=== PATIENT | female | born 1940 | race African-American/Black ===

== ENCOUNTER 2018-02-27 07:24 | Emergency (ER) | payer MEDICARE ==
[2018-02-27] MEDS ORDERED: HYDROcodone/Acetaminophen 10/325 mg Tablet ONE (08:30)
--- NOTE | 2018-02-27 09:07 | RAD ---
TWO VIEWS RIGHT HIP: INDICATION: Right hip pain. COMPARISON: None. 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 No acute fracture or subluxation is evident. 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 POS: [facility]
--- NOTE | 2018-02-27 09:11 | RAD ---
RIGHT KNEE 4 VIEWS: HISTORY: Injury, right knee pain. FINDINGS/IMPRESSION: No acute fracture or dislocation is identified. A joint effusion is present. POS: [facility]
== END 2018-02-27 08:40 | disposition home or self-care (01) ==
LOC: MADERS 07:24
DX: M25.461 Effusion, right knee (principal); M10.9 Gout, unspecified; E78.5 Hyperlipidemia, unspecified; I10 Essential (primary) hypertension; Z79.899 Other long term (current) drug therapy; W18.30XA Fall on same level, unspecified, initial encounter

== ENCOUNTER 2018-03-16 13:58 | Emergency (ER) | payer MEDICARE ==
[~2018-03-16 13:58] MED LIST: Sodium Chloride 0.45% 1,000 ML BAG ONE
[2018-03-16 15:00] LABS: Prothrombin Time 12.8 SEC (12.0-14.7)
[2018-03-16 15:06] LABS: #Basophils 0.1 thou/uL (0.0-0.2); #Eosinphils 0.2 thou/uL (0.0-0.7); #Lymphocytes 2.1 thou/uL (1.20-3.40); #Monocytes 0.5 thou/uL (0.11-0.59); %Basophils 0.9 % (0.0-1.0); %Eosinophils 2.1 % (0.0-10.0); %Lymphocytes 27.2 % (21.0-51.0); %Monocytes 5.9 % (0.0-10.0); Hemoglobin 11.8 g/dL (12.0-16.0); Mean Corpuscular HGB CONC 31.6 g/dL (32.0-36.0); Mean Corpuscular Volume 91.9 fL (78.0-98.0); Mean Platelet Volume 7.6 fL (7.4-10.4); Platelet Count 326 thou/uL (130-400); RBC Distribution Width 14.1 % (11.5-14.5); Red Blood Cell (RBC) Count 4.06 mill/uL (4.20-5.40); White Blood Cell (WBC) Count 7.8 thou/uL (4.8-10.8)
[2018-03-16 15:10] LABS: ALT (SGPT) 10 U/L (8-55); AST (SGOT) 13 U/L (5-34); Alkaline Phosphatase 93 U/L (40-150); Anion Gap 13 mmol/L (10-20); BUN (Urea Nitrogen) 18 mg/dL (9.8-20.1); Bilirubin, Total 0.6 mg/dL (0.2-1.2); Calc. Creatinine Clearance 0 mL/min (70-130); Calcium 9.5 mg/dL (7.8-10.44); Carbon Dioxide 24 mmol/L (23-31); Chloride 118 mmol/L (98-107); Estimated GFR-MDRD 76; Globulin 3.1 g/dL (2.4-3.5); Glucose 101 mg/dL (83-110); Protein, Total 7.1 g/dL (6.0-8.3); Sodium 152 mmol/L (136-145)
[2018-03-16 15:14] LABS: Potassium 2.9 mmol/L (3.5-5.1)
--- NOTE | 2018-03-16 15:24 | CT ---
CT HEAD HWITHOUT CONTRAST: Multiple axial tomograms were obtained through the head without IV enhancement. INDICATION: Fall with injury to head. Post excision of brain tumor. COMPARISON: Comparison is made to CT head of 01/28/2018 and 01/21/2018. Those exams revealed postoperative changes in the left frontal lobe with hematoma at the resection site with edema and mass effect. FINDINGS: On today's exam, there has been regression of the largest hematoma noted previously. There is low at tenuation and volume loss at the operative site of the left frontal lobe and anterior left temporal l obe. Craniotomy defect seen involving the left frontal and temporal bones. There is evidence of a small chronic subdural along the left convexity, residua from the surgical pro cedure. There is no longer any significant mass effect or midline shift. No evidence of acute hemor rhage. No evidence of infarct. IMPRESSION: There are postoperative changes in the left frontotemporal region with regression of the hematoma and edema when compared to 01/28/2018. Evidence of a small chronic subdural hyperdense membranes is cons istent with sequelae from the prior procedure. No evidence of acute process. POS: [facility]
--- NOTE | 2018-03-16 15:24 | RAD ---
AP PELVIS: Date: 03/16/18 HISTORY: Fall with injury to pelvis. FINDINGS/IMPRESSION: Bony pelvis appears intact. Hips appear intact. No evidence of acute osseous abnormality. POS: [facility]
--- NOTE | 2018-03-16 15:25 | RAD ---
PORTABLE CHEST: Date: 03/16/18 HISTORY: Fall with injury to chest and pelvis. FINDINGS: Lung looney are clear. Heart and mediastinum unremarkable. Osseous structures appear intact. IMPRESSION: No acute abnormality identified. POS: [facility]
--- NOTE | 2018-03-16 15:25 | CT ---
CT CERVICAL SPINE NONCONTRAST: History: Fall. Neck injury. Comparison: 01-06-18 FINDINGS: Prominent osteophytosis and multilevel disc space narrowing. Vertebral body heights and alignment are maintained. Cervicothoracic junction intact. No acute fracture or dislocation. Small calcification at the left vallecular is again demonstrated. Cystic component of the associated lesion is less visible than on the previous study. No new abnormalities. IMPRESSION: Prominent cervical spondylosis. No acute osseous abnormalities are demonstrated. POS: [facility]
== END 2018-03-16 17:25 | disposition short-term general hospital (02) ==
LOC: MADERS 13:58
DX: E87.0 Hyperosmolality and hypernatremia (principal); I10 Essential (primary) hypertension; M10.9 Gout, unspecified; Z79.899 Other long term (current) drug therapy
CPT/HCPCS: 36415; 70450; 71045; 72125; 72170; 80053; 83930; 83935; 84300; 85025; 85610

== ENCOUNTER 2018-03-23 19:10 | Emergency (ER) | payer MEDICARE ==
--- NOTE | 2018-03-23 19:56 | CT ---
CT HEAD NONCONTRAST: 03/23/18 HISTORY: Fall. Head injury. COMPARISON: 03/16/18. FINDINGS: Left frontal craniotomy defect with large area of encephalomalacia at the left lobe and temporal lobe are similar in appearance to the previous study. Hyperdense thickening of the dura is stable. Dilata tion of the left lateral ventricle is unchanged. No acute intracranial hemorrhage or infarct. IMPRESSION: Chronic type findings are stable. No acute intracranial abnormalities are demonstrated. POS: [facility]
--- NOTE | 2018-03-23 19:58 | CT ---
CT CERVICAL SPINE NONCONTRAST: 03/23/18 HISTORY: Neck injury. COMPARISON: 03/16/18. FINDINGS: Vertebral body heights and alignment are maintained. Multilevel disc space narrowing and osteophytosi s. Cervicothoracic junction is intact. No acute fracture or dislocation. IMPRESSION: Degenerative changes. No acute osseous abnormalities are demonstrated. POS: [facility]
== END 2018-03-23 21:02 | disposition home or self-care (01) ==
LOC: MADERS 19:10
DX: S00.93XA Contusion of unspecified part of head, initial encounter (principal); M10.9 Gout, unspecified; E78.5 Hyperlipidemia, unspecified; I10 Essential (primary) hypertension; Z79.899 Other long term (current) drug therapy; W07.XXXA Fall from chair, initial encounter
CPT/HCPCS: 70450; 72125

== ENCOUNTER 2018-04-04 14:38 | Outpatient (CLI) | payer MEDICARE ==
[2018-04-04 15:06] LABS: Anion Gap 15 mmol/L (10-20); BUN (Urea Nitrogen) 24 mg/dL (9.8-20.1); Calc. Creatinine Clearance 0 mL/min (70-130); Calcium 9.7 mg/dL (7.8-10.44); Carbon Dioxide 22 mmol/L (23-31); Chloride 116 mmol/L (98-107); Estimated GFR-MDRD 72; Glucose 125 mg/dL (83-110); Potassium 3.2 mmol/L (3.5-5.1); Sodium 150 mmol/L (136-145)
== END 2018-04-04 14:39 | disposition home or self-care (01) ==
LOC: MADLAB 14:38
PROVIDERS: ATTEND General Practice
DX: E87.6 Hypokalemia (principal)
CPT/HCPCS: 80048

== ENCOUNTER 2018-06-25 20:47 | Emergency (ER) | payer MEDICARE ==
[2018-06-25 21:21] LABS: #Basophils 0.1 thou/uL (0.0-0.2); #Eosinphils 0.3 thou/uL (0.0-0.7); #Lymphocytes 1.8 thou/uL (1.20-3.40); #Monocytes 0.4 thou/uL (0.11-0.59); #Neutrophils 6.7 thou/uL (1.40-6.50); %Basophils 0.8 % (0.0-1.0); %Eosinophils 3.2 % (0.0-10.0); %Lymphocytes 19.2 % (21.0-51.0); %Monocytes 4.7 % (0.0-10.0); %Neutrophils 72.1 % (42.0-75.0); Mean Corpuscular HGB CONC 31.6 g/dL (32.0-36.0); Mean Corpuscular Hemoglobin 28.1 pg (27.0-31.0); Mean Corpuscular Volume 89.1 fL (78.0-98.0); Mean Platelet Volume 8.5 fL (7.4-10.4); Platelet Count 340 thou/uL (130-400); RBC Distribution Width 13.9 % (11.5-14.5); Red Blood Cell (RBC) Count 4.62 mill/uL (4.20-5.40); White Blood Cell (WBC) Count 9.2 thou/uL (4.8-10.8)
[2018-06-25 21:34] LABS: ALT (SGPT) 16 U/L (8-55); AST (SGOT) 12 U/L (5-34); Albumin 4.1 g/dL (3.4-4.8); Alkaline Phosphatase 102 U/L (40-150); Anion Gap 15 mmol/L (10-20); BUN (Urea Nitrogen) 24 mg/dL (9.8-20.1); Bilirubin, Total 0.6 mg/dL (0.2-1.2); Calc. Creatinine Clearance 0 mL/min (70-130); Carbon Dioxide 25 mmol/L (23-31); Chloride 108 mmol/L (98-107); Estimated GFR-MDRD 80; Globulin 3.5 g/dL (2.4-3.5); Glucose 103 mg/dL (83-110); Potassium 4.1 mmol/L (3.5-5.1); Protein, Total 7.6 g/dL (6.0-8.3); Sodium 144 mmol/L (136-145)
== END 2018-06-25 22:46 | disposition home or self-care (01) ==
LOC: MADERS 20:47
DX: T65.891A Toxic effect of other specified substances, accidental (unintentional), initial encounter (principal); M10.9 Gout, unspecified; E78.5 Hyperlipidemia, unspecified; I10 Essential (primary) hypertension
CPT/HCPCS: 36415; 80053; 85025; 99284